=== PATIENT | female | born 1985 | race Caucasian/White ===

== ENCOUNTER 2021-03-31 11:12 | Emergency (ER) | payer MEDICAID, SELFPAY ==
[2021-03-31 11:36] VITALS: BP 120/77; PULSE 94; RESP 18; TEMP 37.1; O2SAT 99; BMI 38.8
--- NOTE | 2021-03-31 12:09 | W.ED.BACK ---
HPI - Back Pain/Injury General: Chief Complaint: Back Pain/Injury Stated Complaint: body numbness,SOB post second covid shot Time Seen by Provider: 03/31/21 12:00 History of Present Illness: HPI Narrative: 35-year-old female presents emergency room complaining of various vague complaints. States she has body numbness particular left side she also has some shortness of breath. She had a knot in the popliteal fossa on the right leg yesterday she said after she had a COVID vaccine many of the symptoms started but did not increase in size slightly but now is gone however it still very tender. She also reports tenderness on the right mid back. She had an episode while at work where she got very disoriented confused that was transient and is resolved now. No recent injuries or falls not on any prescription medications. MD elicited complaint: back pain Onset (ago): minute(s) Timing: constant Severity: mild Quality: aching Location: right upper back Radiation: none Exacerbating factors: movement, deep breaths and other (Palpation) Relieving factors: none Associated symptoms: Reports myalgias; Deny abdominal pain, arthralgias, chills, change in bowel habits, difficulty walking, dysuria, fatigue, fecal incontinence, fever(s), hematuria, nausea, numbness, syncope, tingling/numbness/burning, urinary frequency, urinary urgency, vomiting or weakness Review of Systems Const: Denies: fever(s), chills or fatigue ENMT: Denies: throat pain, ear or mastoid pain, nasal discharge or nasal congestion Card: Denies: syncope Resp: Denies: dyspnea, productive cough or non-productive cough GI: Denies: abdominal pain, nausea, vomiting, fecal incontinence or change in bowel habits : Denies: dysuria, urinary urgency or hematuria Skin/Breast: Denies: rash or pruritus Neuro: Denies: difficulty walking PFSH ED PFSH: Medical History Obesity Surgical History History of dental surgery Physical Exam Const: COMMON NORMALS: no acute distress GENERAL APPEARANCE: cooperative and comfortable ORIENTATION/CONSCIOUSNESS: Yes awake, Yes oriented to person, Yes oriented to place and Yes oriented to time HENMT: COMMON NORMALS: normocephalic, atraumatic and hearing grossly normal bilaterally HEAD & SCALP: normocephalic and atraumatic Neck/C-Spine: COMMON NORMALS: no JVD Resp: COMMON NORMALS: normal respiratory effort, No retractions, No use of accessory muscles and clear to auscultation bilaterally AUSCULTATION: clear to auscultation bilaterally Cardio: COMMON NORMALS: no JVD, regular rate, regular rhythm and No murmurs present (Cardio) RATE: regular rate RHYTHM: regular rhythm GI: COMMON NORMALS: Soft to palpation and No hepatosplenomegaly present AUSCULTATION: Yes normoactive bowel sounds PALPATION: Yes Soft to palpation, No Tenderness to palpation present (GI), No Guarding due to palpation present (GI) and Yes No hepatosplenomegaly present Back/Pelvis: OTHER: Reproducible back pain with palpation of the thoracolumbar level of the ribs on the right side. No pain with light touch no skin rash. Extremity: COMMON NORMALS: normal to inspection, capillary refill normal, no clubbing, cyanosis or edema, no calf tenderness and no pedal edema Neuro: SENSORIUM/ORIENTATION: Yes oriented to person, Yes oriented to place and Yes oriented to time Skin: COMMON NORMALS: no rashes or lesions noted GENERAL SKIN EXAM: no rashes or lesions noted Course Vital Signs: Vital signs: Vital Signs Temperature 98.7 F 03/31/21 11:36 Pulse Rate 68 03/31/21 15:52 Respiratory Rate 16 03/31/21 15:52 Blood Pressure 118/68 03/31/21 15:52 Pulse Oximetry 98 03/31/21 15:52 MDM - Back Pain/Injury MDM Narrative: Medical decision making narrative: Venous duplex lower extremity shows a DVT in the lesser saphenous abutting against the bifurcation of the peroneal trunk patient also complained of some chest discomfort and some shortness of breath. I do think she will be a appropriate candidate for anticoagulation I am concerned she may have already had a small PE we will go ahead and do a CTA of the chest CTA negative. Looks it was more of a superficial thrombophlebitis. Him to go ahead and start on diclofenac moist heat to the affected area recheck if not improving if it seems to worsen recheck as well. Discharge Plan Discharge Patient Disposition: Home Clinical Impression: Superficial thrombophlebitis Condition: Stable Prescriptions: New diclofenac sodium 75 mg tablet,delayed release (DR/EC) 75 mg PO Q12H PRN (Reason: pain) Qty: 20 RF: 0 No Action vitamin B complex Tablet 2 tab PO QAM RF: 0 Children's Motrin Jr Strength 100 mg Tablet,Chewable 200 mg PO Q4H PRN (Reason: Pain) RF: 0 Discharge Orders: Discharge ED (Routine); Ordered 03/31/21 Ordered By: Shyam Santacruz Patient Instructions: Opioid Safety Coding Level of Care Code ED Auto Accessories Installer for Manavg Fwd Exam Comprehensive
--- NOTE | 2021-03-31 12:13 | USCV_ITS ---
Piedad Boo Age: 35 Gender: F : 1985 Exam Date: 03/31/2021 13:21 Ordering Phys: Shyam Santacruz DO Technologist: Latisha Gonzalez Exam Location: [facility] – [place] Indication: RT LEG KNOT WITH PAIN POST 2ND COVID SHOT HISTORY: Rt leg knot with pain post 2nd covid shot PROCEDURES: Venous duplex imaging was performed in only the right lower extremity. The following venous structures were evaluated: common femoral vein, profunda vein, proximal portion of the greater saphenous vein, superficial femoral vein, and the popliteal vein. In addition, the posterior tibial and peroneal trunk were evaluated. Serial compression, augmentation maneuvers, and spectral Doppler flow evaluation were performed. The Rt. SSV was also studied FINDINGS: No DVT seen in any vessel scanned. There is thrombus in the Rt. SSV which joins the peroneal trunk. CONCLUSIONS Superficial Thrombus in the Right Small saphenous vein . No evidence of right lower extremity DVT. Sukh Martel MD (Electronically Signed) Final Date: 31 March 2021 14:39 S
[2021-03-31 13:09] VITALS: BP 148/96; PULSE 94; RESP 15; O2SAT 99
--- NOTE | 2021-03-31 13:32 | CT_ITS ---
WS: [id number] CTA OF THE CHEST WITH PULMONARY EMBOLISM PROTOCOL TECHNIQUE: High-resolution contrast enhanced CTA of the chest with coronal and sagittal reformatted i mages with pulmonary embolism protocol. MIP images are also reviewed. CLINICAL INFORMATION: DVT COMPARISON: None. DLP: 478.[address] scans at [facility] use at least one of these dose optimization techniques: automated e xposure control; mA and/or kV adjustment per patient size (includes targeted exams where dose is matc hed to clinical indication); or iterative reconstruction. FINDINGS: Proximal main pulmonary arteries are normal. No evidence of pulmonary embolus. Normal segmental and s ubsegmental pulmonary arteries. Normal caliber thoracic aorta. No mediastinal or hilar lymphadenopathy. No axillary lymphadenopathy. Both lungs are well aerated. No acute pulmonary infiltrates. No focal pneumonia or pleural fluid. CT/CT angio chest PE protcl [id number] IMPRESSION: 1. No evidence of pulmonary embolus. 2. Both lungs are well aerated. No acute pulmonary infiltrates. 3. Normal caliber thoracic aorta. 4. No mediastinal or hilar lymphadenopathy.
[2021-03-31] MEDS: iohexol 350 mg/mL 100 mL Btl IV (14:34)
[2021-03-31 15:09] VITALS: BP 118/68; PULSE 68; RESP 16; O2SAT 98
[2021-03-31 15:52] VITALS: BP 118/68; PULSE 68; RESP 16; O2SAT 98
--- NOTE | 2021-04-04 11:00 | DCPLANNER ---
Addendum entered by Angelique Vergara 05/04/21 16:28: Patient had a follow up appointment scheduled for 04.04.21 with Dimple Owusu to establish primary care - patient did attend appointment. Original Note: Patient called director of casework services about getting established with a primary care physician. Patient stated that she would prefer a female provider. geophysical manager informed patient of Dimple Owusu NP. geophysical manager called the office of Internal Medicine, spoke with Ibeth, gave clinic patients information. A follow up appointment was scheduled for today, Sunday, April 04, 2021 at 1:00 with Dimple Owusu. geophysical manager was told that since patient is self pay that the clinic would give patient the peer financial counselor packet to fill out. geophysical manager asked patient if she would be able to pay 75.00 toward her bill, patient stated that she would. geophysical manager explained where the clinic was. geophysical manager called the clinic, spoke with Ibeth, informed her that patient would be able to pay the 75.00.
== END 2021-03-31 15:52 | disposition home or self-care (01) ==
PROVIDERS: Emergency Provider Family Medicine
DX: I80.01 Phlebitis and thrombophlebitis of superficial vessels of right lower extremity (principal)
CPT/HCPCS: 71275; 93971; 99283; Q9967

== ENCOUNTER → 2021-04-04 16:00 | Outpatient (BNVA) | payer MEDICAID, SELFPAY | PROVIDERS: PCP Nurse Practitioner Family; Visit Provider Nurse Practitioner Family | DX: D50.9 Iron deficiency anemia, unspecified (principal); R53.83 Other fatigue; H61.23 Impacted cerumen, bilateral; I80.9 Phlebitis and thrombophlebitis of unspecified site; E66.9 Obesity, unspecified | CPT/HCPCS: 80053; 82607; 83036; 83550; 84443 ==

== ENCOUNTER 2021-09-11 12:40 | Outpatient (CLI) | payer MEDICAID, SELFPAY ==
--- NOTE | 2021-09-11 12:45 | USCV_ITS ---
Piedad Boo Age: 36 Gender: F : 1985 Exam Date: 09/11/2021 12:59 Ordering Phys: Rosemarie Mancilla Technologist: JUHI [place] [facility] [place]ication: Pain, concern for DVT HISTORY: History of superficial venous thrombosis. Lower extremity pain. PROCEDURES: Comparison:. 03/31/21 Venous duplex imaging was performed in bilateral lower extremities. The following venous structures were evaluated: common femoral vein, profunda vein, proximal portion of the greater saphenous vein, superficial femoral vein, and the popliteal vein. In addition, the posterior tibial and peroneal trunk were evaluated. FINDINGS: There appears to be thrombus present in the Right SSV as seen previously. All other veins imaged appear free of thrombus at this time. CONCLUSIONS No DVT bilateral lower extremities. Chronic thrombus right SSV. Dr. Carlee Perera DO (Electronically Signed) Final Date: 11 September 2021 13:37 S
== END 2021-09-11 12:41 | disposition home or self-care (01) ==
LOC: RAD 12:43
PROVIDERS: PCP Family Medicine; Visit Provider Registered Nurse Neonatal Intensive Care
DX: M79.605 Pain in left leg (principal); M79.604 Pain in right leg; Z86.718 Personal history of other venous thrombosis and embolism
CPT/HCPCS: 93970

== ENCOUNTER → 2021-09-12 11:26 | Outpatient (BNVA) | payer MEDICAID, SELFPAY | PROVIDERS: PCP Nurse Practitioner Family; Visit Provider Family Medicine | DX: E66.9 Obesity, unspecified (principal); I82.811 Embolism and thrombosis of superficial veins of right lower extremity; Z11.4 Encounter for screening for human immunodeficiency virus [HIV]; Z11.59 Encounter for screening for other viral diseases; Z76.89 Persons encountering health services in other specified circumstances | CPT/HCPCS: 80053; 80061; 83036; 84443; 85025; 85651; 86140; 86803; 87806 ==

== ENCOUNTER → 2021-11-21 14:54 | Outpatient (BNVA) | payer MEDICAID, SELFPAY | PROVIDERS: PCP Family Medicine; Visit Provider Internal Medicine Cardiovascular Disease | DX: I80.291 Phlebitis and thrombophlebitis of other deep vessels of right lower extremity (principal); R06.02 Shortness of breath; E66.9 Obesity, unspecified; Z68.38 Body mass index [BMI] 38.0-38.9, adult; R42 Dizziness and giddiness | CPT/HCPCS: 93005; 99203 ==

== ENCOUNTER 2021-12-21 07:34 | Outpatient (CLI) | payer MEDICAID, SELFPAY ==
--- NOTE | 2021-12-21 07:45 | USCV_ITS ---
Piedad Boo Age: 36 Gender: F : 1985 Exam Date: 12/21/2021 07:57 Ordering Phys: Dana Patterson MD ([email or web address]) Technologist: YAJAIRA [place] [facility] [place]ication: H/O RIGHT SSV THROMBUS, RLE PAIN HISTORY: Lower extremity pain. PROCEDURES: Venous duplex imaging was performed in only the right lower extremity. The following venous structures were evaluated: common femoral vein, profunda vein, proximal portion of the greater saphenous vein, superficial femoral vein, and the popliteal vein. In addition, the posterior tibial and peroneal trunk were evaluated. Serial compression, augmentation maneuvers, and spectral Doppler flow evaluation were performed. FINDINGS: No evidence of DVT seen in any vessel visualized at this time. Right SSV thrombus seen prox-dist CONCLUSIONS No evidence of right lower extremity DVT. Superficial chronic thrombus Right SSV appears unchanged since 09/11/21 Sukh Martel MD (Electronically Signed) Final Date: 21 December 2021 15:07 S
== END 2021-12-21 07:35 | disposition home or self-care (01) ==
LOC: RAD 07:34
PROVIDERS: PCP Family Medicine; Visit Provider Internal Medicine Cardiovascular Disease
DX: I80.291 Phlebitis and thrombophlebitis of other deep vessels of right lower extremity (principal); M79.661 Pain in right lower leg; M79.89 Other specified soft tissue disorders
CPT/HCPCS: 93971

== ENCOUNTER → 2022-03-12 10:12 | Outpatient (BNVA) | payer MEDICAID, SELFPAY | PROVIDERS: PCP Family Medicine; Visit Provider Family Medicine | DX: D64.9 Anemia, unspecified (principal); L65.9 Nonscarring hair loss, unspecified; R42 Dizziness and giddiness; K04.7 Periapical abscess without sinus; R53.83 Other fatigue; F41.1 Generalized anxiety disorder | CPT/HCPCS: 80053; 82728; 83550; 84443; 84466; 85025; 85045 ==

== ENCOUNTER 2022-06-12 09:17 | Outpatient (CLI) | payer MEDICAID, SELFPAY ==
--- NOTE | 2022-06-12 09:30 | USCV_ITS ---
Piedad Boo Age: 37 Gender: F : 1985 Exam Date: 06/12/2022 10:08 Ordering Phys: Andreas Johns DO Technologist: PATTY [place] [facility] [place]: Hx of Rt SSV occlusion with pain now in upper thigh HISTORY: History of Rt. SSV occlusion with pain moving up her leg PROCEDURES: Venous duplex imaging was performed in only the right lower extremity. The following venous structures were evaluated: common femoral vein, profunda vein, proximal portion of the greater saphenous vein, superficial femoral vein, and the popliteal vein. In addition, the posterior tibial and peroneal trunk were evaluated. Serial compression, augmentation maneuvers, and spectral Doppler flow evaluation were performed. Examination of Rt SSV also done. FINDINGS: Normal 2-D Doppler and augmentation and compressibility throughout the lower extremity venous structures. Additional imaging through the proximal calf veins also reveals no thrombus. Limited evaluation of the greater saphenous vein is patent with no thrombus. Rt SSV is occluded, chronic. CONCLUSIONS No DVT right lower extremity. Chronic occlusion right SSV. Dr. Carlee Perera DO (Electronically Signed) Final Date: 12 June 2022 15:27 S
== END 2022-06-12 09:18 | disposition home or self-care (01) ==
LOC: RAD 09:20
PROVIDERS: PCP Family Medicine; Visit Provider Family Medicine
DX: M79.604 Pain in right leg (principal); I82.811 Embolism and thrombosis of superficial veins of right lower extremity
CPT/HCPCS: 93971

== ENCOUNTER → 2023-03-29 18:41 | Outpatient (BNVA) | payer MEDICAID, SELFPAY | PROVIDERS: PCP Family Medicine; Visit Provider Nurse Practitioner | DX: J02.9 Acute pharyngitis, unspecified (principal) | CPT/HCPCS: 87880 ==

== ENCOUNTER 2023-05-01 09:29 | Outpatient (CLI) | payer MEDICAID, SELFPAY ==
--- NOTE | 2023-05-01 09:32 | XRR_ITS ---
PROCEDURE INFORMATION: Exam: XR Right Knee Exam date and time: 05/01/2023 9:41 AM Age: 37 years old Clinical indication: Pain; Knee; Right; Additional info: Right knee pain, please include one a-p view weight bearing. TECHNIQUE: Imaging protocol: Radiologic exam of the right knee. Views: 3 views. COMPARISON: No relevant prior studies available. FINDINGS: Bones/joints: No fracture or dislocation. No acute osseous, joint, or soft tissue abnormality. Soft tissues: Normal. XR/XR knee RT 3V* [id number] IMPRESSION: Findings are normal.
== END 2023-05-01 09:30 | disposition home or self-care (01) ==
LOC: RAD 09:30
PROVIDERS: PCP Family Medicine; Visit Provider Family Medicine
DX: M25.561 Pain in right knee (principal)
CPT/HCPCS: 73562

== ENCOUNTER → 2023-06-17 10:06 | Outpatient (BNVA) | payer MEDICAID, SELFPAY | PROVIDERS: PCP Family Medicine; Visit Provider Family Medicine | DX: D64.9 Anemia, unspecified (principal); D50.9 Iron deficiency anemia, unspecified; Z13.6 Encounter for screening for cardiovascular disorders | CPT/HCPCS: 80053; 82728; 83550; 85025 ==

== ENCOUNTER → 2023-06-27 14:07 | Outpatient (BNVA) | payer MEDICAID, SELFPAY | PROVIDERS: PCP Family Medicine; Visit Provider Family Medicine | DX: Z01.419 Encounter for gynecological examination (general) (routine) without abnormal findings (principal) | CPT/HCPCS: 87070; 87205; 87491; 87591; 87624 ==

== ENCOUNTER 2023-07-05 08:39 | Outpatient (CLI) | payer MEDICAID, SELFPAY ==
--- NOTE | 2023-07-05 09:30 | US_ITS ---
WS: [id number] US transvaginal [id number] HISTORY: menorrhagia COMPARISON: None available. Uterus: 9.6 cm x 6.7 cm x 5.6 cm. Normal size anteverted uterus. No fibroid or mass. Endometrium: 1.0 cm. Normal. There is a small amount of fluid along the central endometrial canal whi ch is considered normal. There is no mass or change in echogenicity. Right ovary: 3.0 cm x 2.4 cm x 2.7 cm. Normal size and vascularity, no cystic or solid masses. Left ovary: 2.2 cm x 1.2 cm x 2.5 cm. Normal size and vascularity, no cystic or solid masses. Physiologic free fluid in the cul-de-sac. IMPRESSION: Normal transvaginal pelvic ultrasound. Normal endometrium.
--- NOTE | 2023-07-05 10:00 | MM_ITS ---
WS: [id number] BILATERAL SCREENING DIGITAL TOMOSYNTHESIS MAMMOGRAM WITH CAD HISTORY: screening COMPARISON: None available. Bilateral CC and MLO views with tomosynthesis and synthetic mammography submitted. Computer aided det ection analyzed. Breast composition: The breasts are heterogeneously dense, which may obscure small masses. No suspici ous masses, microcalcifications or architectural distortion. IMPRESSION: MM/[place] [id number] BI-RADS: 1-Negative FOLLOW UP: 1 Year Follow-up
== END 2023-07-05 08:40 | disposition home or self-care (01) ==
LOC: RAD 08:40
PROVIDERS: PCP Family Medicine; Visit Provider Family Medicine
DX: Z12.31 Encounter for screening mammogram for malignant neoplasm of breast (principal); R92.333 Mammographic heterogeneous density, bilateral breasts; N89.8 Other specified noninflammatory disorders of vagina
CPT/HCPCS: 76830; 77063; 77067

== ENCOUNTER 2023-10-04 12:11 | Outpatient (CLI) | payer MEDICAID, SELFPAY ==
--- NOTE | 2023-10-04 12:26 | XR_ITS ---
WS: [id number] XR cervical spine 3V* [id number] REASON FOR EXAM: neck pain FINDINGS: Normal cervical spine curvatures. Cervical vertebral bodies and odontoid are normal. The disc spaces are intact and relatively well preserved. The facet joints are in normal alignment. XR/XR cervical spine 3V* [id number] IMPRESSION: No significant abnormality.
--- NOTE | 2023-10-04 12:26 | XR_ITS ---
WS: [id number] XR elbow LT min 3V* [id number] REASON FOR EXAM: left elbow pain FINDINGS: No fracture or focal bone lesion. The joint spaces of the left elbow are intact and well preserved. No soft tissue abnormality. XR/XR elbow LT min 3V* [id number] IMPRESSION: No significant abnormality.
== END 2023-10-04 12:12 | disposition home or self-care (01) ==
LOC: RAD 12:13
DX: M54.2 Cervicalgia (principal); K04.7 Periapical abscess without sinus; M25.522 Pain in left elbow
CPT/HCPCS: 72040; 73080

== ENCOUNTER → 2023-12-19 10:50 | Outpatient (BNVA) | payer MEDICAID, SELFPAY | DX: R42 Dizziness and giddiness (principal); F41.9 Anxiety disorder, unspecified | CPT/HCPCS: 93005 ==

== ENCOUNTER → 2024-04-27 11:17 | Outpatient (BNVA) | payer MEDICAID, SELFPAY | PROVIDERS: Visit Provider Emergency Medicine | DX: J02.9 Acute pharyngitis, unspecified (principal) | CPT/HCPCS: 87880 ==

== ENCOUNTER 2024-07-20 11:22 | Outpatient (CLI) | payer MEDICAID, SELFPAY ==
--- NOTE | 2024-07-20 | MM_ITS ---
WS: [id number] BILATERAL 3D TOMOSYNTHESIS DIGITAL SCREENING MAMMOGRAPHY WITH CAD CLINICAL INFORMATION: ANNUAL SCREENING HISTORY: Screening mammogram. No current complaints. COMPARISON: 07/05/2023 TECHNIQUE: Bilateral CC and MLO views. FINDINGS: The breasts are composed of heterogeneous fibroglandular density tissue, which can limit the detection of small underlying mass lesions. No suspicious mass, asymmetry, calcifications, or architectural distortion. No evidence of malignancy. MM/MM [facility] tomosynthesis [id number] IMPRESSION: DENSITY: The breasts are heterogeneously dense, which may obscure small masses. BI-RADS: 1 - Negative FOLLOW UP: 1 Year Follow-up Recommend return to annual screening mammography.
== END 2024-07-20 11:23 | disposition home or self-care (01) ==
DX: Z12.31 Encounter for screening mammogram for malignant neoplasm of breast (principal); R92.333 Mammographic heterogeneous density, bilateral breasts
CPT/HCPCS: 77063; 77067

== ENCOUNTER 2024-08-04 09:00 | Day surgery (SDC) | payer MEDICAID, SELFPAY ==
--- NOTE | 2024-08-03 23:54 | W.PM.OPSFHP ---
Same Day Surgery H&P Indication for Procedure/HPI DATE OF PROCEDURE: August 03, 2024 CHIEF COMPLAINT/INDICATIONFOR SURGICAL PROCEDURE: heavy and prolonged menstrual bleeding PREOP DIAGNOSIS: menometrorrhagia PLANNED PROCEDURE: Operation Date: 08/04/24 10:30 Proposed Procedures p Hysteroscopy w/ Endometrial Sampling 32365, N93.9(Not Applicable) - Jorge Luis Soares MD s possible endometrial polypectomy(Not Applicable) - Jorge Luis Soares MD Medications/Allergies* Home Medications ?Medication ?Instructions ?Recorded ?Confirmed ?Type vitamin B complex 2 tab PO QAM 03/31/21 08/03/24 History multivitamin 1 tab PO DAILY 04/04/21 08/03/24 History aspirin 81 mg tablet,delayed 81 mg PO DAILY 11/21/21 08/03/24 History release (Adult Aspirin Regimen) ferrous sulfate 325 mg (65 mg 325 mg PO DAILY 08/03/24 08/03/24 History iron) tablet (iron) Allergies/Adverse Reactions Allergy/AdvReac Type Severity Reaction Status Date / Time escitalopram (From Lexapro) Allergy ADR/ALGY-Pa Verified 06/22/24 09:46 lpitations latex Allergy Unknown Verified 06/22/24 09:46 Pertinent History/Comorbid Conditions* Medical History (Updated 11/25/23 @ 10:06 by Marcia Pappas NP) Chronic neck pain Left elbow pain Neck pain Obesity Surgical History (Updated 03/31/21 @ 12:17 by Shyam Santacruz DO) History of dental surgery Family History (Updated 07/30/23 @ 08:19 by Yris Diaz LPN) Diabetes Father Mother Heart disease Father Grandmother Breast cancer Grandmother paternal Denies family history of Colon cancer Ovarian cancer Prostate cancer Hypercholesteremia Hypertension Uterine cancer Thyroid disease Stroke Social History Smoking and tobacco/nicotine status: never used tobacco/nicotine Alcohol intake: current Alcohol intake frequency: holidays/special occasions only Substance/Drug Use: never Adopted: No service: No Current occupational exposures/hazards: No Pertinent Exam Findings alert, oriented x 3, clear to auscultation bilaterally and regular rate & rhythm Recommendations Surgery/Procedure today Coding Level of Care Code Acute Code for Chg Fwd
[2024-08-04] VITALS (10 sets, daily range): BP systolic 105–125; BP diastolic 68–86; PULSE 68–85; RESP 13–21; TEMP 36.1–36.5; O2SAT 97–100
[2024-08-04 09:17] LABS: OR HCG Qualitative Urine Negative (Negative)
[2024-08-04] MEDS: sodium chloride 0.9% 1,000 ML 30 ML IV (09:26)
--- NOTE | 2024-08-04 10:03 | W.PM.OPSUD ---
Surgery/Procedure H&P Update DATE OF PROCEDURE: August 04, 2024 DATE H&P PERFORMED: 06/22/24 H&P UPDATE INFORMATION: I have reviewed H&P completed within last 30 days, I have examined patient prior to procedure and No changes to prior documentation PREOP DIAGNOSIS: abnormal uterine bleeding PLANNED PROCEDURE: Operation Date: 08/04/24 10:30 Proposed Procedures p Hysteroscopy w/ Endometrial Sampling 30505, N93.9(Not Applicable) - Jorge Luis Soares MD s possible endometrial polypectomy(Not Applicable) - Jorge Luis Soares MD
--- NOTE | 2024-08-04 10:49 | P.ANESASSM_ITS ---
Pre-Anesthetic Assessment Height/Weight: Height 5 ft 1 in Weight 214 lb Temp Pulse Resp Pulse Ox O2 Del Method 97.7 F 72 16 97 Room Air 08/04/24 09:18 08/04/24 09:18 08/04/24 09:18 08/04/24 09:18 08/04/24 09:18 Preop Diagnosis: abnormal uterine bleeding Operation Date: 08/04/24 10:30 Proposed Procedures p Hysteroscopy w/ Endometrial Sampling 68863, N93.9(Not Applicable) - Jorge Luis Soares MD s possible endometrial polypectomy(Not Applicable) - Jorge Luis Soares MD Was Beta Shae taken within 24 hours: N/A Was Clonidine taken within 24 hours: N/A Last intake: Intake Last Liquid Date 08/03/24 Last Liquid Time 19: Last Solid Date 08/03/24 Last Solid Time 19: Social No alcohol and No tobacco Exam alert, oriented x 3, clear to auscultation bilaterally and regular rate & rhythm Airway Submandibular: within normal limits Cervical ROM: within normal limits Mallampati: Class II Comments: Comments: Edentulous Anesthetic Plan ASA status: 3 Anesthesia: General Other: No prior issues with anesthesia NPO since yesterday evening Denies any cardiac or pulmonary issues test negative Plan for general anesthesia Medications/Allergies Home Medications ?Medication ?Instructions ?Recorded ?Confirmed ?Last Taken ?Type vitamin B complex 2 tab PO QAM 03/31/2107/04/24 History multivitamin 1 tab PO DAILY 04/04/21 05/0 08/2307/04/24 History aspirin 81 mg tablet,delayed 81 mg PO DAILY 11/21/21 0 08/03/24 07/04/24 History release (Adult Aspirin Regimen) ferrous sulfate 325 mg (65 mg 325 mg PO DAILY 08/03/24 08/03/24 08/03/24 History iron) tablet (iron) oxycodone-acetaminophen 5 mg-325 1 tab PO BID PRN pain #14 tabs 08/04/24 Unknown Rx mg tablet (Percocet) Allergies Allergy/AdvReac Type Severity Reaction Status Date / Time escitalopram (From Lexapro) Allergy ADR/ALGY-Pa Verified 06/22/24 09:46 lpitations latex Allergy Unknown Verified 06/22/24 09:46 Current Medications Generic Name Dose Route Start Last Admin Trade Name Freq PRN Reason Stop Dose Admin Sodium Chloride 1,000 mls @ 30 mls/hr 08/04/24 09:15 08/04/24 09:26 Sodium Chloride 0.9% IV 08/05/24 09:14 30 mls/hr .Q24H JUJU Administration PFSH Anesthesia Medical History Chronic neck pain Left elbow pain Neck pain Obesity Surgical History History of dental surgery Family History Father Diabetes Heart disease Mother Diabetes Grandmother Breast cancer paternal Heart disease Denies family history of Colon cancer Ovarian cancer Prostate cancer Hypercholesteremia Hypertension Uterine cancer Thyroid disease Stroke Social History Smoking and tobacco/nicotine status: never used tobacco/nicotine Alcohol intake: current Alcohol intake frequency: holidays/special occasions only Substance/Drug Use: never Adopted: No service: No Current occupational exposures/hazards: No Female Reproductive History Spontaneous abortions: No
--- NOTE | 2024-08-04 12:45 | ANE.PACU2 ---
Inpatient post-anesthesia follow up: Airway intact: Yes Vital signs: Temperature 97.0 F Pulse Rate 68 Respiratory Rate 18 Blood Pressure 125/76 Pulse Oximetry 98 Oxygen Delivery Me thod Room Air Oxygen Flow Rate Fraction of Inspir ed Oxygen Hydration adequate: Yes Nausea and vomiting: No Pain level: 1 Mental status: Baseline
--- NOTE | 2024-08-04 13:10 | PM.OP ---
Operative Report Date of procedure: August 04, 2024 Pre-op diagnosis: abnormal uterine bleeding Post-op diagnosis: same Post-op findings: normal endometrial cavity No polyps / fibroids Minimal endometrial tissue Procedure done: hysteroscopy Curettage of uterus Implants: none Specimens removed/disposition: endometrial curettings Surgeon: Jorge Luis Soares MD Anesthesia: MAC Estimated blood loss (mL): 0 Complications: none Findings: normal endometrial cavity No polyps / fibroids Minimal endometrial tissue Condition: stable Disposition: PACU Brief History: 39 y.o. with menometrorrhagia Procedure: Informed consent signed. Patient was taken to the operating room. Anesthesia was induced. Patient was placed in dorsolithotomy position, prepped and draped for hysteroscopy. A bivalve speculum was placed in the vagina. The anterior lip of the cervix was grasped with a sharp-toothed tenaculum. The cervix was serially dilated with Hegar dilators. . A hysteroscope was placed into the endometrial cavity. The endometrial cavity was seen to be normal. There were no polyps or fibroids. There was a minimal amount of endometrial tissue. The hysteroscope was then removed. Endometrial curettage was done with a sharp curette. Endometrial tissue was sent to pathology. The sharp-toothed tenaculum was removed. There was no bleeding from the endometrial cavity or cervix. The patient was then placed supine and awakened and taken to the PACU. Postop condition: stable EBL: none Sponge and instruments counts were normal x 2 Complications: none
== END 2024-08-04 12:45 | disposition home or self-care (01) ==
PROVIDERS: Student in an Organized Health Care Education/Training Program; Visit Provider Obstetrics & Gynecology
PROC: 0UJD8ZZ Inspection of Uterus and Cervix, Via Natural or Artificial Opening Endoscopic (ICD-10-PCS; CPT 58555; principal; 2024-08-04 10:30)
DX: N93.9 Abnormal uterine and vaginal bleeding, unspecified (principal); Z79.82 Long term (current) use of aspirin; E66.9 Obesity, unspecified; Z68.41 Body mass index [BMI] 40.0-44.9, adult; N92.1 Excessive and frequent menstruation with irregular cycle
CPT/HCPCS: 58558; 81025; 88305; J1100; J1885; J2250; J2405; J2704; J3010; J3490; J7030; J9999

== ENCOUNTER → 2025-03-02 17:16 | Outpatient (BNVA) | payer MEDICAID, SELFPAY | DX: J02.9 Acute pharyngitis, unspecified (principal) | CPT/HCPCS: 87880 ==